=== PATIENT | female | born 1965 | race Caucasian/White ===

== ENCOUNTER 2018-08-26 17:01 | Emergency (ER) | payer SELFPAY ==
[~2018-08-26] VITALS: Ht 157.5 cm; Wt 57.6 kg
[2018-08-26 17:01] VITALS: BP 140/94
[2018-08-26] MEDS ORDERED: HYDROCODONE/APAP 5/325MG 1 EACH TABLET ONE ×2 (17:26→18:41)
[2018-08-26] MEDS ORDERED: HYDROCODONE/APAP 5/325MG 1 EACH TABLET PO ONE ×2 (17:30→18:30)
[2018-08-26] MEDS ORDERED: ONDANSETRON HCL 4 MG/5 ML SOLUTION PO ONE (18:30)
[2018-08-26] MEDS ORDERED: ONDANSETRON HCL 4 MG/5 ML SOLUTION ONE (18:41)
== END 2018-08-26 19:19 | disposition home or self-care (01) ==
LOC: ER 17:06
DX: S29.8XXA Other specified injuries of thorax, initial encounter (principal); I10 Essential (primary) hypertension; Z98.890 Other specified postprocedural states; W18.39XA Other fall on same level, initial encounter; Y93.K1 Activity, walking an animal; Y92.89 Other specified places as the place of occurrence of the external cause; Y99.8 Other external cause status
CPT/HCPCS: 71250-TC; Q0162